=== PATIENT | female | born 1955 | race Caucasian/White ===

== ENCOUNTER → 2016-10-21 | Outpatient (CLI) | payer BC ==
--- NOTE | 2016-10-25 09:03 | MM ---
Reason for exam: screening (asymptomatic). History: Patient is postmenopausal. Physical Findings: A clinical breast exam by your physician is recommended on an annual basis and results should be correlated with mammographic findings. MG Screening Mammo w CAD Bilateral CC and MLO view(s) were taken. There are scattered fibroglandular densities. There is probable chronic nodularity in the left breast. ASSESSMENT: Benign, BI-RAD 2 RECOMMENDATION: Routine screening mammogram of both breasts in 1 year.
== END ==
LOC: RADMAMWWP 13:50
PROVIDERS: ATTEND Family Medicine
DX: Z12.31 Encounter for screening mammogram for malignant neoplasm of breast (principal)

== ENCOUNTER 2016-12-07 08:00 | Day surgery (SDC) | payer BC, OTHER ==
[2016-12-01 10:17] VITALS: BMI 24.7
[~2016-12-07 08:00] MED LIST: LACTATED RINGERS 1,000 ML IV SCH
[2016-12-07 08:28] VITALS: RESP 16; TEMP 97.7
[2016-12-07] MEDS ORDERED: LIDOCAINE 1% 20 ML VIAL (10MG/ML) FOR IV START INTRADERMA ONE (08:28)
[2016-12-07] MEDS ORDERED: fentaNYL (PF) 50 MCG/ML 2 ML AMP ONE (09:12)
[2016-12-07] MEDS ORDERED: LIDOCAINE 1% INJ 10MG/ML (20 ML MDV) ONE (09:12)
[2016-12-07] MEDS ORDERED: PROPOFOL 10 MG/ML 20 ML VIAL IV ONE (09:12)
[2016-12-07] MEDS ORDERED: GLUCAGON 1 MG/ML VIAL ONE (09:12)
[2016-12-07] MEDS ORDERED: IV FLUID CONTINUATION 1,000 ML IV ONE (09:32)
--- NOTE | 2016-12-07 09:52 | P.PCN ---
Date of Procedure: 12/07/16 Preoperative Diagnosis: Screening colonoscopy Postoperative Diagnosis: Moderate sigmoid diverticuli, polyp at 20 cm, internal hemorrhoids, decreased rectal sphincter tone Procedure(s) Performed: Colonoscopy, with snare polypectomy Anesthesia: MAC Surgeon: Ingrid Osorio Estimated Blood Loss (ml): 0 IV fluids (ml): 400 Pathology: none sent Condition: stable Disposition: PACU Indications for Procedure: Screening colonoscopy Operative Findings: Sigmoid diverticuli, internal hemorrhoids, polyp at 20 cm removed with snare polypectomy but not retrieved Description of Procedure: Patient was taken to the endoscopy suite and following sedation rectal exam was performed. Patient was noted to have decreased rectal sphincter tone. Colonoscope was passed through the anus into the rectum. Was passed up to 20 cm was small polyp was identified and removed with snare polypectomy. It was not able to be retrieved. The scope continued to be advanced through the sigmoid colon to splenic flexure transverse colon hepatic flexure right colon down to the area of the cecum. Circumferential observation mucosa did not reveal any lesions of concern in the cecum or right colon. No lesions of concern in the transverse colon. No lesions of concern in the left colon scattered diverticuli identified. There was believed to be the polyp was again seen and attempt to retrieve this was a vessel villous polyp appeared to drop into an area of stool and despite the fact that this was irrigated the polyp was not retrieved. No other polypoid lesions of concern were identified. As the scope was withdrawn no other lesions of concern concern were noted. Scope was brought to the rectum where it was retroflexed internal hemorrhoids identified. Impression/plan: 1. Polyp at 20 cm 2. Internal hemorrhoids 3. Sigmoid diverticuli Plan: 1. Conservative management of diverticuli and hemorrhoids 2. Repeat colonoscopy in 2 years
--- NOTE | 2016-12-07 09:53 | P.DS ---
Providers Attending physician: Ingrid Osorio Primary care physician: Behzad Bojorquez Plan - Discharge Summary Discharge Medication List Biotin 10,000 mcg PO Q7D 12/01/16 [History] Cholecalciferol [Vitamin D3] 1,000 unit PO DAILY 12/01/16 [History] Cyanocobalamin [Vitamin B-12] 500 mcg PO DAILY 12/01/16 [History] [place]-3 Fatty Acids/Fish Oil [Fish Oil 1,000 mg Softgel] 1 each PO DAILY [History] PARoxetine HCL [Paxil Cr] 25 mg PO HS 12/01/16 [History] Ranitidine HCl [Zantac] 75 mg PO HS PRN 12/01/16 [History] Vitamin E 1,000 unit PO DAILY 12/01/16 [History] Follow up Appointment(s)/Referral(s): Ingrid Osorio MD [STAFF PHYSICIAN] - 11/23/18 Activity/Diet/Wound Care/Special Instructions: Diverticular diet Do not drive today
[2016-12-07 10:57] VITALS: BP 95/68
--- NOTE | 2016-12-07 10:59 | XR ---
EXAMINATION TYPE: XR chest 1V portable DATE OF EXAM: 12/07/2016 10:56 AM HISTORY: Shortness of breath. COMPARISON: None. TECHNIQUE: Single view of the chest is submitted. FINDINGS: Demonstrated are scattered senescent parenchymal change. There is left lower lobe opacity which may reflect infiltrate or atelectasis. Aspiration not excluded . The heart is stable. Hilar and mediastinal structures are within normal limits. Degenerative changes are seen of the dorsal spine. IMPRESSION: 1. There is left lower lobe opacity which may reflect infiltrate or atelectasis. Aspiration not excl uded.
[2016-12-07 11:20] VITALS: PULSE 76
== END 2016-12-07 10:55 | disposition home or self-care (01) ==
LOC: ORWHC2ENDO 08:00
PROVIDERS: ATTEND Surgery
DX: Z12.11 Encounter for screening for malignant neoplasm of colon (principal); K57.30 Diverticulosis of large intestine without perforation or abscess without bleeding; K64.8 Other hemorrhoids; K63.5 Polyp of colon; R06.02 Shortness of breath; K21.9 Gastro-esophageal reflux disease without esophagitis; F32.9 Major depressive disorder, single episode, unspecified; R91.8 Other nonspecific abnormal finding of lung field; F41.9 Anxiety disorder, unspecified; Z79.899 Other long term (current) drug therapy
CPT/HCPCS: 71010; 45385; J1610; J2001; J3010; J2704

== ENCOUNTER → 2018-06-09 | Outpatient (CLI) | payer BC ==
--- NOTE | 2018-06-12 09:14 | MM ---
Reason for exam: screening (asymptomatic). Last mammogram was performed 1 year and 8 months ago. History: Patient is postmenopausal. Physical Findings: A clinical breast exam by your physician is recommended on an annual basis and results should be correlated with mammographic findings. MG Screening Mammo w CAD Bilateral CC and MLO view(s) were taken. Prior study comparison: October 21, 2016, bilateral MG screening mammo w CAD. There are scattered fibroglandular densities. There is no discrete abnormality. No significant changes when compared with prior studies. ASSESSMENT: Negative, BI-RAD 1 RECOMMENDATION: Routine screening mammogram of both breasts in 1 year.
== END | disposition home or self-care (01) ==
LOC: RADMAMWWP 09:58
PROVIDERS: ATTEND Family Medicine
DX: Z12.31 Encounter for screening mammogram for malignant neoplasm of breast (principal)
CPT/HCPCS: 77067

== ENCOUNTER → 2023-05-13 | Outpatient (CLI) | payer MEDICARE ==
--- NOTE | 2023-05-13 12:17 | CA ---
Exercise Nuclear Stress Test Report Name: Jasmin Jaramillo Exam Date: 05/13/2023 09:45 Exam Location: [facility] Stress Ht (in): 63 Wt (lb): 140 BSA: 1.66 Ordering Phys: Gladys Sharif DO Referring Phys: Alexandria Waller PAC Technologist: VLADIMIR,, Age: 68 Gender: F : 1955 Procedure CPT: Indications: R94.31 abn ekg, R42 dizziness ICD-10 Codes: Patient History: Family history of heart disease Medications: Meds past 24 hrs: Pretest Chest Pain: STRESS TEST Scott Protocol Exercise Duration (min:sec): 07:[address] Depressions (mm): Angina Score: Mancini Score: Resting HR (bpm): 83 Peak HR (bpm): 141 Resting BP (mmHg): 123 / 87 Peak BP (mmHg): / 81 MPHR: 152 Target HR: 129 % MPHR: 93 METS: 8.9 Total Dose: Peak Dose: Atropine: Double Product: BP Response: Stress Termination: Reached target heart rate Stress Symptoms: No chest pain or symptoms Stress Summary: ECG ANALYSIS Resting ECG: Stress ECG: CONCLUSIONS Patient underwent exercise stress Cardiolite with a Scott protocol treadmill stress test. Patient exercised into Stage 2 for a total of 7 minutes reaching a total of 8.9 METS. Patient's maximum heart rate was 141 which represented 92% age- predicted maximum heart rate. Stress EKG findings: At baseline patient's EKG showed sinus rhythm, normal axis, no significant ST or T wave abnormalities. At peak exercise, EKG showed no significant change from baseline. Conclusions: 1. Normal EKG response to exercise without evidence of inducible ischemia. 2. Good exercise capacity. 3. Nuclear portion to be reported separately Dr. Konstantin Cooper DO (Electronically Signed) Final Date: 13 May 2023 12:16
--- NOTE | 2023-05-13 12:46 | NM ---
EXAMINATION TYPE: NM stress cardiolite complete DATE OF EXAM: 05/13/2023 COMPARISON: NONE CLINICAL INDICATION: Female, 68 years old with history of R94.31 abn ekg, R42 dizziness; TECHNIQUE: After the intravenous administration of 9.8 mCi Tc 99m Sestamibi - Rest images obtained 4 5 minutes post injection. The patient exercised using a DAVID protocol and 1 minute prior to peak e xercise was injected with 25.1 mCi Tc 99m Sestamibi - Stress images obtained 35 minutes post injectio n. FINDINGS: Targeted heart rate was achieved during performance of the study. Review of stress and rest SPECT pancho ges demonstrates no distinct perfusion abnormality. Gated analysis shows normal wall motion with an estimated left ventricular ejection fraction of 65 %. IMPRESSION: No scintigraphic evidence for reversible ischemia
== END | disposition home or self-care (01) ==
LOC: RADNMMAIN 08:02
PROVIDERS: ATTEND Family Medicine
DX: R94.31 Abnormal electrocardiogram [ECG] [EKG] (principal); R42 Dizziness and giddiness
CPT/HCPCS: 93017; 78452; A9500

== ENCOUNTER → 2023-11-09 | Outpatient (CLI) | payer MEDICARE ==
--- NOTE | 2023-11-10 08:13 | MM ---
Reason for Exam: Screening (asymptomatic). Last mammogram was performed 5 year(s) and 5 month(s) ago. Patient History: Menarche at age 12. First Full-Term at age 29. Postmenopausal. Risk Values: Yuliana 5 year model risk: 1.9%. NCI Lifetime model risk: 6.2%. Prior Study Comparison: 10/21/2016 Bilateral Screening Mammogram, [facility]. 06/09/2018 Bilateral Screening Mammogram, [facility]. Tissue Density: There are scattered areas of fibroglandular density. Findings: Analyzed By CAD. Right breast: There is no suspicious group of microcalcifications or new suspicious mass. Left breast: There is no suspicious group of microcalcifications or new suspicious mass. There is no suspicious group of microcalcifications or new suspicious mass. Overall Assessment: Negative, BI-RAD 1 Management: Screening Mammogram of both breasts in [address] [facility] will attempt to contact patient to return for supplemental views and ultrasound if indicated. Patient should continue monthly self-breast exams. A clinical breast exam by your physician is recommended on an annual basis. This exam should not preclude additional follow-up of suspicious palpable abnormalities. Note on Yuliana scores and lifetime risk: 1. A Yuliana score greater than 3% is considered moderate risk. If this is the case, consider specialist referral to assess eligibility for a risk reducing agent. 2. If overall lifetime risk for the development of breast cancer is 20% or higher, the patient may qualify for future screening with alternating mammogram and breast MRI. Electronically signed and approved by: Malik Blue DO
== END | disposition home or self-care (01) ==
LOC: RADMAMWWP 10:02
PROVIDERS: ATTEND Family Medicine
DX: Z12.31 Encounter for screening mammogram for malignant neoplasm of breast (principal); Z78.0 Asymptomatic menopausal state
CPT/HCPCS: 77067